=== PATIENT | female | born 1985 | race Caucasian/White ===

== ENCOUNTER 2024-11-10 11:42 | Emergency (ER) | payer SELFPAY ==
[2024-11-10] MEDS: Ketorolac 30 MG/ML SDV IM ONE (12:16)
[2024-11-10] MEDS: Benzocaine 20% Topical Spray UD MUCMEM ONE (12:17)
[2024-11-10] MEDS: Lidocaine 2% Viscous Solution 15 ML UD PO ONE (12:17)
== END 2024-11-10 12:36 | disposition home or self-care (01) ==
LOC: MW.ED 11:42
DX: K04.7 Periapical abscess without sinus (principal); F17.210 Nicotine dependence, cigarettes, uncomplicated; Z86.16 Personal history of COVID-19; Z79.899 Other long term (current) drug therapy; Z75.8 Other problems related to medical facilities and other health care
CPT/HCPCS: 96372; 99282; A9270; J1885